=== PATIENT | female | born 1960 | race Caucasian/White ===

== ENCOUNTER 2017-07-14 14:27 | Inpatient (IN) | payer OTHER, MEDICAID ==
[2017-07-14] MEDS ORDERED: ONDANSETRON 4 MG INJ IV (16:30)
[2017-07-14] MEDS ORDERED: DOCUSATE SODIUM 100 MG CAP PO (16:30)
[2017-07-14] MEDS ORDERED: MAGNESIUM HYDROXIDE 30ML CUP PO (16:30)
[2017-07-14] MEDS ORDERED: NA PHOSPHATE/BIPHOS 133 ML ENEMA PR (16:30)
[2017-07-14] MEDS ORDERED: NACL 0.9% 3 ML SYG IV (16:30)
[2017-07-14] MEDS ORDERED: NITROGLYCERIN (SL) 0.4 MG TAB SL (16:30)
[2017-07-14] MEDS ORDERED: LORAZEPAM 2 MG INJ IV (16:30)
[2017-07-14] MEDS ORDERED: ALBUTEROL/IPRATROPIUM (NEB) 3 ML AMP HHN (16:30)
[2017-07-14] MEDS: CHLORDIAZEPOXIDE 25 MG CAP PO ×3 (16:52→20:13)
[2017-07-14] MEDS: LORAZEPAM 2 MG INJ IV ×4 (17:52→23:07)
[2017-07-14 17:53] LABS: INR 1.12; PROTIME 14.6 Sec (11.9-14.9); PT RATIO 1.1
[2017-07-14 17:54] LABS: PARTIAL THROMBOPLASTIN TIME 32.3 Sec (25.0-35.0)
[2017-07-14 18:05] LABS: FREE T4 (FREE THYROXINE) 1.28 ng/dl (0.64-1.79)
[2017-07-14] MEDS: DILTIAZEM-D5W 125MG/125ML DRIP 125 ML IVPB ×2 (18:20→18:44)
[2017-07-14] MEDS: MULTIVITAMINS 10 ML, THIAMINE 100 MG, FOLIC ACID 1 MG in SOD CHLORIDE 0.9% 1,000 ML IVPB (18:21)
[2017-07-14] MEDS: morphine 2 MG INJ IV (20:14)
[2017-07-14] MEDS: HEPARIN 5,000 UNIT/0.5 ML VIAL SC (20:17)
[2017-07-14] MEDS ORDERED: CHLORDIAZEPOXIDE 25 MG CAP PO (21:00)
[2017-07-15] MEDS: DILTIAZEM-D5W 125MG/125ML DRIP 125 ML IVPB ×2 (01:39→09:25)
[2017-07-15] MEDS: LORAZEPAM 2 MG INJ IV ×6 (04:56→13:45)
[2017-07-15] MEDS: MULTIVITAMINS 10 ML, THIAMINE 100 MG, FOLIC ACID 1 MG in SOD CHLORIDE 0.9% 1,000 ML IVPB (08:37)
[2017-07-15] MEDS: CHLORDIAZEPOXIDE 25 MG CAP PO ×3 (08:37→20:47)
[2017-07-15] MEDS: FAMOTIDINE 20 MG INJ IV (08:38)
[2017-07-15] MEDS: HEPARIN 5,000 UNIT/0.5 ML VIAL SC ×2 (09:00→20:49)
[2017-07-15 09:21] LABS: ADD MAN DIFF? NO
[2017-07-15 09:32] LABS: WHITE BLOOD COUNT 7.9 10^3/ul (4.8-10.8)
[2017-07-15 09:32] LABS: BASOPHILS % 0.4 % (0.0-2.0); EOSINOPHILS # 0.1 10^3/ul (0.0-0.5); EOSINOPHILS % 1.4 % (0.0-7.0); HEMATOCRIT 32.7 % (37.0-47.0); HEMOGLOBIN 11.3 g/dl (12.0-16.0); LYMPHOCYTES # 1.3 10^3/ul (0.8-2.9); LYMPHOCYTES % 16.4 % (15.0-51.0); MEAN CORPUSCULAR HEMOGLOBIN 35.3 pg (29.0-33.0); MEAN CORPUSCULAR HGB CONC 34.6 g/dl (32.0-37.0); MEAN CORPUSCULAR VOLUME 102.2 fl (82.0-101.0); MEAN PLATELET VOLUME 11.4 fl (7.4-10.4); MONOCYTE # 0.3 10^3/ul (0.3-0.9); MONOCYTES % 4.3 % (0.0-11.0); NEUTROPHIL # 6.1 10^3/ul (1.6-7.5); NEUTROPHILS % 77.2 % (39.0-77.0); PLATELET COUNT 193 10^3/UL (140-415)
[2017-07-15 09:47] LABS: ANION GAP 15 (8-16); BLOOD UREA NITROGEN 8 mg/dl (7-20); CALCIUM 8.6 mg/dl (8.4-10.2); CARBON DIOXIDE 24 mmol/L (21-31); CHLORIDE 99 mmol/L (97-110); CHOL/HDL RATIO 6.1 RATIO; CHOLESTEROL 141 mg/dl (100-200); CREATININE 0.58 mg/dl (0.44-1.00); GLUCOSE 101 mg/dl (70-220); HDL CHOLESTEROL 23 mg/dl (35-98); LDL CHOLESTEROL,CALCULATED 98 mg/dl; MAGNESIUM 1.7 mg/dl (1.7-2.5); PHOSPHORUS 3.3 mg/dl (2.5-4.9); POTASSIUM 3.8 mmol/L (3.5-5.1); SODIUM 134 mmol/L (135-144); TRIGLYCERIDES 102 mg/dl (0-149)
[2017-07-15 10:05] LABS: HEMOGLOBIN A1C 5.8 % (0-5.9)
[2017-07-15 12:56] LABS: FOLATE 18.5 ng/ml (2.8-20.0)
[2017-07-15] MEDS: morphine 2 MG INJ IV ×2 (13:45→18:22)
[2017-07-15] MEDS: DILTIAZEM 60 MG TAB PO (18:22)
[2017-07-16] MEDS: HYDROCODONE/APAP (5/325) TAB PO (00:11)
[2017-07-16] MEDS: DILTIAZEM 60 MG TAB PO ×3 (00:12→12:48)
[2017-07-16] MEDS: morphine 2 MG INJ IV ×2 (00:33→06:42)
[2017-07-16 08:21] LABS: ADD MAN DIFF? NO
[2017-07-16 08:31] LABS: WHITE BLOOD COUNT 8.4 10^3/ul (4.8-10.8)
[2017-07-16 08:31] LABS: BASOPHILS % 0.4 % (0.0-2.0); EOSINOPHILS # 0.1 10^3/ul (0.0-0.5); EOSINOPHILS % 1.2 % (0.0-7.0); HEMATOCRIT 32.5 % (37.0-47.0); HEMOGLOBIN 11.1 g/dl (12.0-16.0); LYMPHOCYTES # 1.4 10^3/ul (0.8-2.9); LYMPHOCYTES % 16.7 % (15.0-51.0); MEAN CORPUSCULAR HEMOGLOBIN 34.6 pg (29.0-33.0); MEAN CORPUSCULAR HGB CONC 34.2 g/dl (32.0-37.0); MEAN CORPUSCULAR VOLUME 101.2 fl (82.0-101.0); MEAN PLATELET VOLUME 11.5 fl (7.4-10.4); MONOCYTE # 0.4 10^3/ul (0.3-0.9); MONOCYTES % 4.8 % (0.0-11.0); NEUTROPHIL # 6.4 10^3/ul (1.6-7.5); NEUTROPHILS % 76.5 % (39.0-77.0); PLATELET COUNT 174 10^3/UL (140-415); RED BLOOD COUNT 3.21 10^6/ul (4.20-5.40); RED CELL DISTRIBUTION WIDTH 15.8 % (11.5-14.5)
[2017-07-16 09:03] LABS: ANION GAP 14 (8-16); BLOOD UREA NITROGEN 6 mg/dl (7-20); CALCIUM 8.6 mg/dl (8.4-10.2); CARBON DIOXIDE 27 mmol/L (21-31); CHLORIDE 100 mmol/L (97-110); GLUCOSE 85 mg/dl (70-220); POTASSIUM 3.7 mmol/L (3.5-5.1); SODIUM 137 mmol/L (135-144)
[2017-07-16] MEDS: MULTIVITAMINS 10 ML, THIAMINE 100 MG, FOLIC ACID 1 MG in SOD CHLORIDE 0.9% 1,000 ML IVPB (09:19)
[2017-07-16] MEDS: ASPIRIN 81 MG TAB PO (09:19)
[2017-07-16] MEDS: CHLORDIAZEPOXIDE 25 MG CAP PO ×3 (09:19→20:50)
[2017-07-16] MEDS: FAMOTIDINE 20 MG INJ IV (09:19)
[2017-07-16] MEDS: HEPARIN 5,000 UNIT/0.5 ML VIAL SC ×2 (09:42→20:57)
[2017-07-16] MEDS: ACETAMINOPHEN 325 MG TAB PO (12:50)
[2017-07-16] MEDS: LORAZEPAM 2 MG INJ IV ×2 (15:51→20:50)
[2017-07-16] MEDS: DILTIAZEM 90 MG TAB PO (17:46)
[2017-07-16] MEDS: POTASSIUM CHLORIDE (SR) 20 MEQ TAB PO (17:46)
[2017-07-16] MEDS: METOPROLOL 50 MG TAB PO (20:43)
[2017-07-17] MEDS: DILTIAZEM 90 MG TAB PO ×4 (00:12→18:00)
[2017-07-17] MEDS: MULTIVITAMINS 10 ML, THIAMINE 100 MG, FOLIC ACID 1 MG in SOD CHLORIDE 0.9% 1,000 ML IVPB (08:10)
[2017-07-17] MEDS: CHLORDIAZEPOXIDE 25 MG CAP PO ×3 (08:11→21:00)
[2017-07-17] MEDS: ASPIRIN 81 MG TAB PO (08:11)
[2017-07-17] MEDS: METOPROLOL 50 MG TAB PO ×3 (08:17→22:00)
[2017-07-17] MEDS: FAMOTIDINE 20 MG TAB PO (08:21)
[2017-07-17] MEDS: HEPARIN 5,000 UNIT/0.5 ML VIAL SC ×2 (08:23→21:04)
[2017-07-17 08:57] LABS: ADD MAN DIFF? NO
[2017-07-17 09:06] LABS: WHITE BLOOD COUNT 6.9 10^3/ul (4.8-10.8)
[2017-07-17 09:06] LABS: BASOPHILS % 0.6 % (0.0-2.0); EOSINOPHILS # 0.1 10^3/ul (0.0-0.5); EOSINOPHILS % 0.9 % (0.0-7.0); HEMATOCRIT 30.1 % (37.0-47.0); HEMOGLOBIN 10.3 g/dl (12.0-16.0); LYMPHOCYTES # 0.9 10^3/ul (0.8-2.9); LYMPHOCYTES % 13.4 % (15.0-51.0); MEAN CORPUSCULAR HGB CONC 34.2 g/dl (32.0-37.0); MEAN CORPUSCULAR VOLUME 102.4 fl (82.0-101.0); MEAN PLATELET VOLUME 10.6 fl (7.4-10.4); MONOCYTE # 0.4 10^3/ul (0.3-0.9); MONOCYTES % 5.2 % (0.0-11.0); NEUTROPHIL # 5.5 10^3/ul (1.6-7.5); NEUTROPHILS % 79.8 % (39.0-77.0); PLATELET COUNT 172 10^3/UL (140-415); RED BLOOD COUNT 2.94 10^6/ul (4.20-5.40); RED CELL DISTRIBUTION WIDTH 15.8 % (11.5-14.5)
[2017-07-17 09:17] LABS: MAGNESIUM 1.7 mg/dl (1.7-2.5)
[2017-07-17] MEDS: LORAZEPAM 2 MG INJ IV ×2 (09:22→11:22)
[2017-07-17 09:29] LABS: ANION GAP 13 (8-16); BLOOD UREA NITROGEN 6 mg/dl (7-20); CALCIUM 8.4 mg/dl (8.4-10.2); CARBON DIOXIDE 26 mmol/L (21-31); CHLORIDE 106 mmol/L (97-110); CREATININE 0.54 mg/dl (0.44-1.00); GLUCOSE 112 mg/dl (70-220); POTASSIUM 3.5 mmol/L (3.5-5.1); SODIUM 141 mmol/L (135-144)
[2017-07-17] MEDS: POTASSIUM CHLORIDE (SR) 20 MEQ TAB PO (10:09)
[2017-07-17] MEDS: MAGNESIUM SULFATE 2 GM/50 ML 50 ML IVPB (11:18)
[2017-07-18] MEDS: DILTIAZEM 50 MG INJ IV ×6 (00:33→21:41)
[2017-07-18] MEDS: METOPROLOL 50 MG TAB PO (06:00)
[2017-07-18] MEDS: DILTIAZEM 90 MG TAB PO ×4 (06:00→17:23)
[2017-07-18] MEDS: MULTIVITAMINS 10 ML, THIAMINE 100 MG, FOLIC ACID 1 MG in SOD CHLORIDE 0.9% 1,000 ML IVPB (08:56)
[2017-07-18] MEDS: FAMOTIDINE 20 MG TAB PO (09:00)
[2017-07-18] MEDS: CHLORDIAZEPOXIDE 25 MG CAP PO ×3 (09:00→21:11)
[2017-07-18] MEDS: ASPIRIN 81 MG TAB PO (09:00)
[2017-07-18] MEDS: HEPARIN 5,000 UNIT/0.5 ML VIAL SC ×2 (09:01→21:13)
[2017-07-18 09:07] LABS: ADD MAN DIFF? NO
[2017-07-18 09:19] LABS: BASOPHILS % 0.5 % (0.0-2.0); EOSINOPHILS # 0.1 10^3/ul (0.0-0.5); EOSINOPHILS % 1.2 % (0.0-7.0); HEMATOCRIT 30.8 % (37.0-47.0); HEMOGLOBIN 10.4 g/dl (12.0-16.0); LYMPHOCYTES # 1.4 10^3/ul (0.8-2.9); LYMPHOCYTES % 19.5 % (15.0-51.0); MEAN CORPUSCULAR HEMOGLOBIN 34.7 pg (29.0-33.0); MEAN CORPUSCULAR HGB CONC 33.8 g/dl (32.0-37.0); MEAN CORPUSCULAR VOLUME 102.7 fl (82.0-101.0); MEAN PLATELET VOLUME 10.8 fl (7.4-10.4); MONOCYTE # 0.6 10^3/ul (0.3-0.9); MONOCYTES % 7.7 % (0.0-11.0); NEUTROPHIL # 5.2 10^3/ul (1.6-7.5); NEUTROPHILS % 70.7 % (39.0-77.0); PLATELET COUNT 180 10^3/UL (140-415); RED CELL DISTRIBUTION WIDTH 16.3 % (11.5-14.5)
[2017-07-18 09:19] LABS: WHITE BLOOD COUNT 7.4 10^3/ul (4.8-10.8)
[2017-07-18 09:47] LABS: ANION GAP 11 (8-16); BLOOD UREA NITROGEN 9 mg/dl (7-20); CALCIUM 8.3 mg/dl (8.4-10.2); CARBON DIOXIDE 28 mmol/L (21-31); CHLORIDE 107 mmol/L (97-110); CREATININE 0.56 mg/dl (0.44-1.00); GLUCOSE 91 mg/dl (70-220); POTASSIUM 3.7 mmol/L (3.5-5.1); SODIUM 142 mmol/L (135-144)
[2017-07-18] MEDS: DIGOXIN 500 MCG INJ IV (10:20)
[2017-07-18] MEDS: IPRATROPIUM (NEB) 0.5 MG/2.5 ML AMP HHN ×2 (11:00→15:29)
[2017-07-18] MEDS: LEVALBUTEROL (NEB) 1.25 MG/0.5 ML AMP HHN ×2 (11:00→15:29)
[2017-07-18] MEDS ORDERED: DILTIAZEM 25 MG INJ IV (12:00)
[2017-07-18 12:56] LABS: IRON 41 ug/dl (35-150)
[2017-07-18 13:06] LABS: % IRON SATURATION 16 % SAT (22-52); TOTAL IRON BINDING CAPACITY 255 ug/dl (241-421)
[2017-07-18 13:30] LABS: HEPATITIS B SURFACE ANTIGEN NEGATIVE (NEGATIVE)
[2017-07-18 13:47] LABS: HEPATITIS C VIRAL ANTIBODY NEGATIVE (NEGATIVE)
[2017-07-18 14:51] LABS: RAPID PLASMA REAGIN NONREACTIVE (NR)
[2017-07-18] MEDS: METOPROLOL 100 MG TAB PO (21:11)
[2017-07-19] MEDS: IPRATROPIUM (NEB) 0.5 MG/2.5 ML AMP HHN ×3 (00:54→15:24)
[2017-07-19] MEDS: LEVALBUTEROL (NEB) 1.25 MG/0.5 ML AMP HHN ×2 (00:54→08:26)
[2017-07-19] MEDS: DILTIAZEM 90 MG TAB PO ×4 (06:50→17:19)
[2017-07-19 07:14] LABS: ADD MAN DIFF? NO
[2017-07-19 07:18] LABS: BASOPHIL # 0.1 10^3/ul (0.0-0.1); BASOPHILS % 0.7 % (0.0-2.0); EOSINOPHILS # 0.2 10^3/ul (0.0-0.5); HEMATOCRIT 34.4 % (37.0-47.0); HEMOGLOBIN 11.7 g/dl (12.0-16.0); LYMPHOCYTES # 1.4 10^3/ul (0.8-2.9); LYMPHOCYTES % 17.9 % (15.0-51.0); MEAN CORPUSCULAR HEMOGLOBIN 35.2 pg (29.0-33.0); MEAN CORPUSCULAR VOLUME 103.6 fl (82.0-101.0); MONOCYTE # 0.6 10^3/ul (0.3-0.9); MONOCYTES % 8.2 % (0.0-11.0); NEUTROPHIL # 5.4 10^3/ul (1.6-7.5); NEUTROPHILS % 70.9 % (39.0-77.0); PLATELET COUNT 219 10^3/UL (140-415); RED BLOOD COUNT 3.32 10^6/ul (4.20-5.40); RED CELL DISTRIBUTION WIDTH 16.5 % (11.5-14.5)
[2017-07-19 07:18] LABS: WHITE BLOOD COUNT 7.5 10^3/ul (4.8-10.8)
[2017-07-19 07:51] LABS: ANION GAP 13 (8-16); BLOOD UREA NITROGEN 9 mg/dl (7-20); CALCIUM 8.6 mg/dl (8.4-10.2); CARBON DIOXIDE 26 mmol/L (21-31); CHLORIDE 110 mmol/L (97-110); CREATININE 0.53 mg/dl (0.44-1.00); GLUCOSE 91 mg/dl (70-220); POTASSIUM 4.5 mmol/L (3.5-5.1); SODIUM 144 mmol/L (135-144)
[2017-07-19] MEDS: HEPARIN 5,000 UNIT/0.5 ML VIAL SC ×2 (08:49→21:38)
[2017-07-19] MEDS: ASPIRIN 81 MG TAB PO (09:00)
[2017-07-19] MEDS: CHLORDIAZEPOXIDE 25 MG CAP PO ×3 (09:00→21:24)
[2017-07-19] MEDS: METOPROLOL 100 MG TAB PO ×2 (09:00→21:24)
[2017-07-19] MEDS: FAMOTIDINE 20 MG TAB PO (09:00)
[2017-07-19] MEDS: MULTIVITAMINS 10 ML, THIAMINE 100 MG, FOLIC ACID 1 MG in SOD CHLORIDE 0.9% 1,000 ML IVPB (09:02)
[2017-07-20] MEDS: IPRATROPIUM (NEB) 0.5 MG/2.5 ML AMP HHN ×4 (00:11→23:09)
[2017-07-20] MEDS: DILTIAZEM 90 MG TAB PO ×4 (01:00→17:26)
[2017-07-20 07:47] LABS: ADD MAN DIFF? NO
[2017-07-20 07:56] LABS: WHITE BLOOD COUNT 7.3 10^3/ul (4.8-10.8)
[2017-07-20 07:56] LABS: BASOPHIL # 0.1 10^3/ul (0.0-0.1); BASOPHILS % 0.7 % (0.0-2.0); EOSINOPHILS # 0.2 10^3/ul (0.0-0.5); EOSINOPHILS % 2.1 % (0.0-7.0); HEMATOCRIT 33.2 % (37.0-47.0); HEMOGLOBIN 11.3 g/dl (12.0-16.0); LYMPHOCYTES # 1.2 10^3/ul (0.8-2.9); LYMPHOCYTES % 16.6 % (15.0-51.0); MEAN CORPUSCULAR HEMOGLOBIN 34.9 pg (29.0-33.0); MEAN CORPUSCULAR VOLUME 102.5 fl (82.0-101.0); MEAN PLATELET VOLUME 12.2 fl (7.4-10.4); MONOCYTE # 0.6 10^3/ul (0.3-0.9); MONOCYTES % 8.5 % (0.0-11.0); NEUTROPHIL # 5.2 10^3/ul (1.6-7.5); NEUTROPHILS % 71.6 % (39.0-77.0); PLATELET COUNT 185 10^3/UL (140-415); RED BLOOD COUNT 3.24 10^6/ul (4.20-5.40); RED CELL DISTRIBUTION WIDTH 16.5 % (11.5-14.5)
[2017-07-20] MEDS: ASPIRIN 81 MG TAB PO (08:21)
[2017-07-20] MEDS: FAMOTIDINE 20 MG TAB PO (08:21)
[2017-07-20] MEDS: METOPROLOL 100 MG TAB PO ×2 (08:21→20:44)
[2017-07-20] MEDS: CHLORDIAZEPOXIDE 25 MG CAP PO (08:21)
[2017-07-20] MEDS: HEPARIN 5,000 UNIT/0.5 ML VIAL SC ×2 (08:23→20:57)
[2017-07-20 08:29] LABS: ANION GAP 11 (8-16); BLOOD UREA NITROGEN 11 mg/dl (7-20); CALCIUM 8.6 mg/dl (8.4-10.2); CARBON DIOXIDE 29 mmol/L (21-31); CHLORIDE 109 mmol/L (97-110); CREATININE 0.49 mg/dl (0.44-1.00); GLUCOSE 116 mg/dl (70-220); POTASSIUM 4.6 mmol/L (3.5-5.1); SODIUM 144 mmol/L (135-144)
[2017-07-20] MEDS: MULTIVITAMINS 10 ML, THIAMINE 100 MG, FOLIC ACID 1 MG in SOD CHLORIDE 0.9% 1,000 ML IVPB (08:50)
[2017-07-20 12:49] LABS: AMMONIA 30 umol/l (9-30)
[2017-07-20 13:52] LABS: AADO2 Arterial 33.5 mmHg (7.0-24.0); Allen Test ACCEPTAB; Arterial Base Excess 1.9 mmol/L (-3.0-3); Arterial Blood Gas Oxygen Sat 92.6 mmHG (95.0-98.0); Arterial COHb 0.1 % (0.0-3.0); Arterial Fraction of Oxyhgb 92.3 % (93.0-99.0); Arterial HCO3 26.4 mmol/L (22.0-26.0); Arterial MetHb 0.2 % (0.0-1.5); Arterial Total Hemglobin 11.8 g/dl (12.0-18.0); Arterial pCO2 40.9 mmhg (35-45); MODE ROOM AIR; Site Right Radial
[2017-07-21] MEDS: DILTIAZEM 90 MG TAB PO ×3 (01:34→12:20)
[2017-07-21 07:47] LABS: ADD MAN DIFF? NO
[2017-07-21 07:53] LABS: BASOPHILS % 0.5 % (0.0-2.0); EOSINOPHILS # 0.1 10^3/ul (0.0-0.5); EOSINOPHILS % 2.2 % (0.0-7.0); HEMOGLOBIN 11.4 g/dl (12.0-16.0); LYMPHOCYTES % 15.9 % (15.0-51.0); MEAN CORPUSCULAR HEMOGLOBIN 35.1 pg (29.0-33.0); MEAN CORPUSCULAR HGB CONC 33.5 g/dl (32.0-37.0); MEAN CORPUSCULAR VOLUME 104.6 fl (82.0-101.0); MEAN PLATELET VOLUME 11.9 fl (7.4-10.4); MONOCYTE # 0.5 10^3/ul (0.3-0.9); MONOCYTES % 8.4 % (0.0-11.0); NEUTROPHIL # 4.6 10^3/ul (1.6-7.5); NEUTROPHILS % 72.5 % (39.0-77.0); PLATELET COUNT 186 10^3/UL (140-415); RED BLOOD COUNT 3.25 10^6/ul (4.20-5.40); RED CELL DISTRIBUTION WIDTH 16.5 % (11.5-14.5)
[2017-07-21 07:53] LABS: WHITE BLOOD COUNT 6.3 10^3/ul (4.8-10.8)
[2017-07-21] MEDS: IPRATROPIUM (NEB) 0.5 MG/2.5 ML AMP HHN ×2 (08:19→16:39)
[2017-07-21 08:29] LABS: MAGNESIUM 1.9 mg/dl (1.7-2.5)
[2017-07-21 08:37] LABS: ANION GAP 10 (8-16); BLOOD UREA NITROGEN 11 mg/dl (7-20); CALCIUM 8.6 mg/dl (8.4-10.2); CARBON DIOXIDE 27 mmol/L (21-31); CHLORIDE 109 mmol/L (97-110); GLUCOSE 134 mg/dl (70-220); POTASSIUM 4.1 mmol/L (3.5-5.1); SODIUM 142 mmol/L (135-144)
[2017-07-21] MEDS: MULTIVITAMINS 10 ML, THIAMINE 100 MG, FOLIC ACID 1 MG in SOD CHLORIDE 0.9% 1,000 ML IVPB (08:51)
[2017-07-21] MEDS: HEPARIN 5,000 UNIT/0.5 ML VIAL SC ×2 (08:51→21:48)
[2017-07-21] MEDS: ASPIRIN 81 MG TAB PO (08:52)
[2017-07-21] MEDS: METOPROLOL 100 MG TAB PO ×2 (08:52→21:20)
[2017-07-21] MEDS: FAMOTIDINE 20 MG TAB PO (08:52)
[2017-07-21] MEDS: ALBUTEROL/IPRATROPIUM (NEB) 3 ML AMP HHN (10:58)
[2017-07-21] MEDS ORDERED: DILTIAZEM 60 MG TAB PO (15:30)
[2017-07-22] MEDS: IPRATROPIUM (NEB) 0.5 MG/2.5 ML AMP HHN ×3 (00:09→17:41)
[2017-07-22 08:20] LABS: ADD MAN DIFF? NO
[2017-07-22 08:43] LABS: ANION GAP 13 (8-16); BLOOD UREA NITROGEN 12 mg/dl (7-20); CALCIUM 8.4 mg/dl (8.4-10.2); CARBON DIOXIDE 29 mmol/L (21-31); CHLORIDE 103 mmol/L (97-110); CREATININE 0.52 mg/dl (0.44-1.00); GLUCOSE 120 mg/dl (70-220); POTASSIUM 4.2 mmol/L (3.5-5.1); SODIUM 141 mmol/L (135-144)
[2017-07-22] MEDS: ASPIRIN 81 MG TAB PO (09:09)
[2017-07-22] MEDS: METOPROLOL 100 MG TAB PO ×2 (09:09→20:59)
[2017-07-22] MEDS: FAMOTIDINE 20 MG TAB PO (09:09)
[2017-07-22] MEDS: HEPARIN 5,000 UNIT/0.5 ML VIAL SC ×2 (09:11→21:07)
[2017-07-22] MEDS: MULTIVITAMINS 10 ML, THIAMINE 100 MG, FOLIC ACID 1 MG in SOD CHLORIDE 0.9% 1,000 ML IVPB (09:18)
[2017-07-22 10:52] LABS: BASOPHILS % 0.5 % (0.0-2.0); EOSINOPHILS # 0.1 10^3/ul (0.0-0.5); EOSINOPHILS % 1.7 % (0.0-7.0); HEMATOCRIT 34.1 % (37.0-47.0); HEMOGLOBIN 11.3 g/dl (12.0-16.0); LYMPHOCYTES # 0.9 10^3/ul (0.8-2.9); LYMPHOCYTES % 14.1 % (15.0-51.0); MEAN CORPUSCULAR HEMOGLOBIN 34.6 pg (29.0-33.0); MEAN CORPUSCULAR HGB CONC 33.1 g/dl (32.0-37.0); MEAN CORPUSCULAR VOLUME 104.3 fl (82.0-101.0); MEAN PLATELET VOLUME 11.7 fl (7.4-10.4); MONOCYTE # 0.4 10^3/ul (0.3-0.9); MONOCYTES % 6.2 % (0.0-11.0); NEUTROPHILS % 77.2 % (39.0-77.0); PLATELET COUNT 210 10^3/UL (140-415); RED BLOOD COUNT 3.27 10^6/ul (4.20-5.40); RED CELL DISTRIBUTION WIDTH 16.2 % (11.5-14.5)
[2017-07-22 10:52] LABS: WHITE BLOOD COUNT 6.5 10^3/ul (4.8-10.8)
[2017-07-23] MEDS: IPRATROPIUM (NEB) 0.5 MG/2.5 ML AMP HHN ×3 (00:35→16:00)
[2017-07-23 07:29] LABS: AMMONIA 27 umol/l (9-30)
[2017-07-23 07:33] LABS: ALANINE AMINOTRANSFERASE 56 IU/L (13-69); ALBUMIN 2.5 g/dl (3.3-4.9); ALKALINE PHOSPHATASE 114 IU/L (42-121); ANION GAP 7 (8-16); ASPARTATE AMINO TRANSFERASE 139 IU/L (15-46); BILIRUBIN,INDIRECT 0.1 mg/dl (0-1.1); BILIRUBIN,TOTAL 0.1 mg/dl (0.2-1.3); BLOOD UREA NITROGEN 11 mg/dl (7-20); CALCIUM 8.5 mg/dl (8.4-10.2); CARBON DIOXIDE 33 mmol/L (21-31); CHLORIDE 103 mmol/L (97-110); GLUCOSE 141 mg/dl (70-220); POTASSIUM 4.3 mmol/L (3.5-5.1); SODIUM 139 mmol/L (135-144); TOTAL PROTEIN 5.6 g/dl (6.1-8.1)
[2017-07-23] MEDS: FAMOTIDINE 20 MG TAB PO (09:00)
[2017-07-23] MEDS: MULTIVITAMINS 10 ML, THIAMINE 100 MG, FOLIC ACID 1 MG in SOD CHLORIDE 0.9% 1,000 ML IVPB (09:00)
[2017-07-23] MEDS: METOPROLOL 100 MG TAB PO ×3 (09:01→23:58)
[2017-07-23] MEDS: ASPIRIN 81 MG TAB PO (09:01)
[2017-07-23] MEDS: HEPARIN 5,000 UNIT/0.5 ML VIAL SC ×2 (09:12→21:58)
[2017-07-23] MEDS: ALBUTEROL/IPRATROPIUM (NEB) 3 ML AMP HHN ×4 (10:37→20:07)
[2017-07-23] MEDS: FUROSEMIDE 40 MG INJ IV ×2 (11:00→14:25)
[2017-07-23] MEDS: METHYLPREDNISOLONE 125 MG INJ IM (13:02)
[2017-07-23] MEDS: DILTIAZEM 25 MG INJ IV (16:42)
[2017-07-24] MEDS: ALBUTEROL/IPRATROPIUM (NEB) 3 ML AMP HHN ×6 (01:38→20:26)
[2017-07-24] MEDS: IPRATROPIUM (NEB) 0.5 MG/2.5 ML AMP HHN ×3 (08:00→13:24)
[2017-07-24] MEDS: FUROSEMIDE 40 MG INJ IV (08:56)
[2017-07-24] MEDS: FAMOTIDINE 20 MG TAB PO (08:56)
[2017-07-24] MEDS: ASPIRIN 81 MG TAB PO (08:57)
[2017-07-24] MEDS: METOPROLOL 100 MG TAB PO ×2 (08:57→20:32)
[2017-07-24] MEDS: MULTIVITAMINS 10 ML, THIAMINE 100 MG, FOLIC ACID 1 MG in SOD CHLORIDE 0.9% 1,000 ML IVPB (08:58)
[2017-07-24] MEDS: HEPARIN 5,000 UNIT/0.5 ML VIAL SC ×2 (09:00→20:33)
[2017-07-24 09:06] LABS: ANION GAP 8 (8-16); BLOOD UREA NITROGEN 12 mg/dl (7-20); CALCIUM 8.9 mg/dl (8.4-10.2); CARBON DIOXIDE 38 mmol/L (21-31); CHLORIDE 102 mmol/L (97-110); CREATININE 0.51 mg/dl (0.44-1.00); GLUCOSE 129 mg/dl (70-220); POTASSIUM 4.2 mmol/L (3.5-5.1); SODIUM 144 mmol/L (135-144)
[2017-07-24 15:14] LABS: FLD RBC 0 /uL; FLD WBC 64 /cmm
[2017-07-24 15:26] LABS: FLUID LD 212 U/L
[2017-07-24 15:27] LABS: FLUID GLUCOSE 130 mg/dl; FLUID TOTAL PROTEIN < 2.0 g/dl; FLUID TYPE FLUID
[2017-07-24 15:38] LABS: FLD TYPE PLEURAL
[2017-07-24 15:38] LABS: FLD CLARITY CLEAR
[2017-07-24 15:40] LABS: PATH REVIEW? YES
[2017-07-24 15:43] LABS: FLD COLOR YELLOW
[2017-07-24] MEDS ORDERED: LIDOCAINE 1% (MDV) 10 ML INJ (16:53)
[2017-07-24 17:47] LABS: CSF RBC 0 /uL (0-0); CSF WBC 1 /cmm (0-10)
[2017-07-24 17:49] LABS: CSF RBC 0 /uL (0-0); CSF WBC 0 /cmm (0-10)
[2017-07-24 17:50] LABS: CSF COLOR COLORLESS
[2017-07-24 17:50] LABS: CSF CLARITY CLEAR; CSF COLOR COLORLESS; CSF#TUBE COUNT TUBE#1; CSF#TUBE COUNT TUBE#4; CSF#TUBES REC'D 4
[2017-07-24 18:03] LABS: TOTAL PROTEIN,CSF 46 mg/dl (12-60)
[2017-07-24 18:03] LABS: GLUCOSE,CSF 65 mg/dl (50-80)
[2017-07-25] MEDS: METOPROLOL 100 MG TAB PO ×2 (00:42→08:23)
[2017-07-25] MEDS: ALBUTEROL/IPRATROPIUM (NEB) 3 ML AMP HHN ×6 (01:35→20:46)
[2017-07-25 07:21] LABS: ADD MAN DIFF? NO
[2017-07-25 07:26] LABS: BASOPHILS % 0.5 % (0.0-2.0); EOSINOPHILS # 0.1 10^3/ul (0.0-0.5); EOSINOPHILS % 2.2 % (0.0-7.0); HEMATOCRIT 32.8 % (37.0-47.0); LYMPHOCYTES # 1.2 10^3/ul (0.8-2.9); LYMPHOCYTES % 18.4 % (15.0-51.0); MEAN CORPUSCULAR HEMOGLOBIN 34.8 pg (29.0-33.0); MEAN CORPUSCULAR HGB CONC 33.5 g/dl (32.0-37.0); MEAN CORPUSCULAR VOLUME 103.8 fl (82.0-101.0); MONOCYTE # 0.4 10^3/ul (0.3-0.9); NEUTROPHIL # 4.6 10^3/ul (1.6-7.5); NEUTROPHILS % 72.6 % (39.0-77.0); PLATELET COUNT 216 10^3/UL (140-415); RED BLOOD COUNT 3.16 10^6/ul (4.20-5.40)
[2017-07-25 07:26] LABS: WHITE BLOOD COUNT 6.4 10^3/ul (4.8-10.8)
[2017-07-25 07:56] LABS: ANION GAP 9 (8-16); BLOOD UREA NITROGEN 15 mg/dl (7-20); CALCIUM 8.7 mg/dl (8.4-10.2); CARBON DIOXIDE 36 mmol/L (21-31); CHLORIDE 99 mmol/L (97-110); CREATININE 0.57 mg/dl (0.44-1.00); GLUCOSE 126 mg/dl (70-220); POTASSIUM 4.3 mmol/L (3.5-5.1); SODIUM 140 mmol/L (135-144)
[2017-07-25] MEDS: ASPIRIN 81 MG TAB PO (08:22)
[2017-07-25] MEDS: FOLIC ACID 1 MG TAB PO (08:22)
[2017-07-25] MEDS: THIAMINE 100 MG TAB GTB (08:22)
[2017-07-25] MEDS: FAMOTIDINE 20 MG TAB PO (08:23)
[2017-07-25] MEDS: FUROSEMIDE 40 MG INJ IV (08:24)
[2017-07-25] MEDS: HEPARIN 5,000 UNIT/0.5 ML VIAL SC ×2 (08:25→23:02)
[2017-07-25] MEDS: IPRATROPIUM (NEB) 0.5 MG/2.5 ML AMP HHN ×3 (09:00→16:42)
[2017-07-26] MEDS: IPRATROPIUM (NEB) 0.5 MG/2.5 ML AMP HHN
[2017-07-26] MEDS: ALBUTEROL/IPRATROPIUM (NEB) 3 ML AMP HHN ×6 (00:13→20:22)
[2017-07-26] MEDS: FOLIC ACID 1 MG TAB PO (08:41)
[2017-07-26] MEDS: METOPROLOL 100 MG TAB PO ×2 (08:42→20:12)
[2017-07-26] MEDS: ASPIRIN 81 MG TAB PO (08:42)
[2017-07-26] MEDS: FAMOTIDINE 20 MG TAB PO (08:42)
[2017-07-26] MEDS: FUROSEMIDE 40 MG INJ IV (08:43)
[2017-07-26] MEDS: THIAMINE 100 MG TAB GTB (08:46)
[2017-07-26] MEDS: HEPARIN 5,000 UNIT/0.5 ML VIAL SC ×2 (08:46→20:23)
[2017-07-26] MEDS: CITALOPRAM 20 MG TAB NGT (14:54)
[2017-07-26] MEDS: DILTIAZEM 60 MG TAB NGT ×2 (14:55→22:56)
[2017-07-27] MEDS: ALBUTEROL/IPRATROPIUM (NEB) 3 ML AMP HHN ×6 (00:46→20:05)
[2017-07-27 05:33] LABS: AADO2 Arterial 39.7 mmHg (7.0-24.0); Allen Test ACCEPTAB; Arterial Blood Gas Oxygen Sat 97.4 mmHG (95.0-98.0); Arterial COHb 0.9 % (0.0-3.0); Arterial Fraction of Oxyhgb 96.2 % (93.0-99.0); Arterial HCO3 32.7 mmol/L (22.0-26.0); Arterial MetHb 0.3 % (0.0-1.5); Arterial Total Hemglobin 12.3 g/dl (12.0-18.0); Arterial pCO2 45.7 mmhg (35-45); MODE NASAL CANNULA; Site Left Radial
[2017-07-27] MEDS: DILTIAZEM 60 MG TAB NGT ×3 (05:38→21:51)
[2017-07-27] MEDS: ASPIRIN 81 MG TAB PO (08:44)
[2017-07-27] MEDS: FOLIC ACID 1 MG TAB PO (08:44)
[2017-07-27] MEDS: METOPROLOL 100 MG TAB PO ×2 (08:44→21:51)
[2017-07-27] MEDS: THIAMINE 100 MG TAB GTB (08:44)
[2017-07-27] MEDS: FAMOTIDINE 20 MG TAB PO (08:44)
[2017-07-27] MEDS: CITALOPRAM 20 MG TAB NGT (08:44)
[2017-07-27] MEDS: FUROSEMIDE 40 MG INJ IV (08:45)
[2017-07-27] MEDS: HEPARIN 5,000 UNIT/0.5 ML VIAL SC ×2 (08:48→21:54)
[2017-07-27 09:11] LABS: ADD MAN DIFF? NO
[2017-07-27 09:16] LABS: BASOPHIL # 0.1 10^3/ul (0.0-0.1); BASOPHILS % 0.7 % (0.0-2.0); EOSINOPHILS # 0.1 10^3/ul (0.0-0.5); EOSINOPHILS % 1.6 % (0.0-7.0); LYMPHOCYTES # 1.3 10^3/ul (0.8-2.9); LYMPHOCYTES % 18.1 % (15.0-51.0); MEAN CORPUSCULAR HGB CONC 33.3 g/dl (32.0-37.0); MEAN CORPUSCULAR VOLUME 101.9 fl (82.0-101.0); MEAN PLATELET VOLUME 12.3 fl (7.4-10.4); MONOCYTE # 0.4 10^3/ul (0.3-0.9); MONOCYTES % 4.8 % (0.0-11.0); NEUTROPHIL # 5.4 10^3/ul (1.6-7.5); NEUTROPHILS % 74.4 % (39.0-77.0); PLATELET COUNT 242 10^3/UL (140-415); RED BLOOD COUNT 3.24 10^6/ul (4.20-5.40); RED CELL DISTRIBUTION WIDTH 15.6 % (11.5-14.5)
[2017-07-27 09:16] LABS: WHITE BLOOD COUNT 7.3 10^3/ul (4.8-10.8)
[2017-07-27 09:36] LABS: ANION GAP 8 (8-16); BLOOD UREA NITROGEN 15 mg/dl (7-20); CALCIUM 8.9 mg/dl (8.4-10.2); CARBON DIOXIDE 36 mmol/L (21-31); CHLORIDE 100 mmol/L (97-110); CREATININE 0.58 mg/dl (0.44-1.00); GLUCOSE 124 mg/dl (70-220); POTASSIUM 3.9 mmol/L (3.5-5.1); SODIUM 140 mmol/L (135-144)
[2017-07-27 09:37] LABS: MAGNESIUM 2.1 mg/dl (1.7-2.5)
[2017-07-28] MEDS: ALBUTEROL/IPRATROPIUM (NEB) 3 ML AMP HHN ×6 (01:30→20:05)
[2017-07-28] MEDS: DILTIAZEM 60 MG TAB NGT ×3 (06:13→20:32)
[2017-07-28] MEDS: FAMOTIDINE 20 MG TAB PO (08:35)
[2017-07-28] MEDS: THIAMINE 100 MG TAB GTB (08:35)
[2017-07-28] MEDS: CITALOPRAM 20 MG TAB NGT (08:35)
[2017-07-28] MEDS: METOPROLOL 100 MG TAB PO ×2 (08:36→20:31)
[2017-07-28] MEDS: FOLIC ACID 1 MG TAB PO (08:37)
[2017-07-28] MEDS: FUROSEMIDE 40 MG INJ IV (08:37)
[2017-07-28] MEDS: ASPIRIN 81 MG TAB PO (08:37)
[2017-07-28] MEDS: HEPARIN 5,000 UNIT/0.5 ML VIAL SC ×2 (08:39→20:35)
[2017-07-28] MEDS ORDERED: MODAFINIL 200 MG TAB PO (11:30)
[2017-07-28] MEDS: DILTIAZEM 50 MG INJ IV ×2 (17:48→19:05)
[2017-07-28 19:47] LABS: VDRL, CSF NON-REACTIVE
[2017-07-29] MEDS: ALBUTEROL/IPRATROPIUM (NEB) 3 ML AMP HHN ×6 (01:27→21:08)
[2017-07-29] MEDS: DILTIAZEM 60 MG TAB NGT ×3 (05:14→20:24)
[2017-07-29 08:13] LABS: ADD MAN DIFF? NO
[2017-07-29 08:20] LABS: WHITE BLOOD COUNT 7.9 10^3/ul (4.8-10.8)
[2017-07-29 08:20] LABS: BASOPHIL # 0.1 10^3/ul (0.0-0.1); BASOPHILS % 0.8 % (0.0-2.0); EOSINOPHILS # 0.1 10^3/ul (0.0-0.5); EOSINOPHILS % 1.1 % (0.0-7.0); HEMATOCRIT 34.3 % (37.0-47.0); HEMOGLOBIN 11.5 g/dl (12.0-16.0); LYMPHOCYTES # 1.4 10^3/ul (0.8-2.9); LYMPHOCYTES % 17.3 % (15.0-51.0); MEAN CORPUSCULAR HGB CONC 33.5 g/dl (32.0-37.0); MEAN CORPUSCULAR VOLUME 101.5 fl (82.0-101.0); MEAN PLATELET VOLUME 12.2 fl (7.4-10.4); MONOCYTE # 0.5 10^3/ul (0.3-0.9); MONOCYTES % 6.7 % (0.0-11.0); NEUTROPHIL # 5.8 10^3/ul (1.6-7.5); NEUTROPHILS % 73.7 % (39.0-77.0); PLATELET COUNT 271 10^3/UL (140-415); RED BLOOD COUNT 3.38 10^6/ul (4.20-5.40); RED CELL DISTRIBUTION WIDTH 15.7 % (11.5-14.5)
[2017-07-29 08:38] LABS: ANION GAP 12 (8-16); BLOOD UREA NITROGEN 17 mg/dl (7-20); CALCIUM 8.9 mg/dl (8.4-10.2); CARBON DIOXIDE 31 mmol/L (21-31); CHLORIDE 100 mmol/L (97-110); GLUCOSE 138 mg/dl (70-220); MAGNESIUM 2.1 mg/dl (1.7-2.5); POTASSIUM 4.1 mmol/L (3.5-5.1); SODIUM 139 mmol/L (135-144)
[2017-07-29] MEDS: METOPROLOL 100 MG TAB PO ×2 (09:13→20:24)
[2017-07-29] MEDS: CITALOPRAM 20 MG TAB NGT (09:13)
[2017-07-29] MEDS: FOLIC ACID 1 MG TAB PO (09:13)
[2017-07-29] MEDS: ASPIRIN 81 MG TAB PO (09:14)
[2017-07-29] MEDS: FAMOTIDINE 20 MG TAB PO (09:14)
[2017-07-29] MEDS: THIAMINE 100 MG TAB GTB (09:14)
[2017-07-29] MEDS: FUROSEMIDE 40 MG INJ IV (09:15)
[2017-07-29] MEDS: HEPARIN 5,000 UNIT/0.5 ML VIAL SC ×2 (09:17→20:26)
[2017-07-30] MEDS: ALBUTEROL/IPRATROPIUM (NEB) 3 ML AMP HHN ×6 (01:31→20:15)
[2017-07-30] MEDS: DILTIAZEM 60 MG TAB NGT ×3 (05:25→21:01)
[2017-07-30] MEDS: METOPROLOL 100 MG TAB PO ×2 (08:50→21:00)
[2017-07-30] MEDS: FAMOTIDINE 20 MG TAB PO (08:50)
[2017-07-30] MEDS: THIAMINE 100 MG TAB GTB (08:50)
[2017-07-30] MEDS: CITALOPRAM 20 MG TAB NGT (08:50)
[2017-07-30] MEDS: ASPIRIN 81 MG TAB PO (08:50)
[2017-07-30] MEDS: FOLIC ACID 1 MG TAB PO (08:50)
[2017-07-30] MEDS: FUROSEMIDE 40 MG INJ IV (08:51)
[2017-07-30] MEDS: HEPARIN 5,000 UNIT/0.5 ML VIAL SC ×2 (09:06→20:59)
[2017-07-31] MEDS: ALBUTEROL/IPRATROPIUM (NEB) 3 ML AMP HHN ×6 (00:44→20:23)
[2017-07-31] MEDS: DILTIAZEM 60 MG TAB NGT ×3 (05:17→21:25)
[2017-07-31 07:54] LABS: ADD MAN DIFF? NO
[2017-07-31 07:57] LABS: WHITE BLOOD COUNT 9.7 10^3/ul (4.8-10.8)
[2017-07-31 07:57] LABS: BASOPHIL # 0.1 10^3/ul (0.0-0.1); BASOPHILS % 0.7 % (0.0-2.0); EOSINOPHILS # 0.1 10^3/ul (0.0-0.5); EOSINOPHILS % 1.2 % (0.0-7.0); LYMPHOCYTES # 1.7 10^3/ul (0.8-2.9); LYMPHOCYTES % 17.2 % (15.0-51.0); MEAN CORPUSCULAR HGB CONC 33.3 g/dl (32.0-37.0); MEAN PLATELET VOLUME 12.3 fl (7.4-10.4); MONOCYTE # 0.5 10^3/ul (0.3-0.9); MONOCYTES % 5.2 % (0.0-11.0); NEUTROPHIL # 7.3 10^3/ul (1.6-7.5); NEUTROPHILS % 75.4 % (39.0-77.0); PLATELET COUNT 277 10^3/UL (140-415); RED BLOOD COUNT 3.53 10^6/ul (4.20-5.40)
[2017-07-31 08:34] LABS: ANION GAP 11 (8-16); BLOOD UREA NITROGEN 18 mg/dl (7-20); CARBON DIOXIDE 34 mmol/L (21-31); CHLORIDE 98 mmol/L (97-110); CREATININE 0.54 mg/dl (0.44-1.00); GLUCOSE 94 mg/dl (70-220); SODIUM 139 mmol/L (135-144)
[2017-07-31 08:45] LABS: PHOSPHORUS 4.4 mg/dl (2.5-4.9)
[2017-07-31] MEDS: HEPARIN 5,000 UNIT/0.5 ML VIAL SC ×2 (08:55→21:51)
[2017-07-31] MEDS: THIAMINE 100 MG TAB GTB (08:56)
[2017-07-31] MEDS: METOPROLOL 100 MG TAB PO ×2 (08:56→21:26)
[2017-07-31] MEDS: CITALOPRAM 20 MG TAB NGT (08:57)
[2017-07-31] MEDS: ASPIRIN 81 MG TAB PO (08:57)
[2017-07-31] MEDS: FAMOTIDINE 20 MG TAB PO (08:57)
[2017-07-31] MEDS: FOLIC ACID 1 MG TAB PO (08:57)
[2017-07-31] MEDS: FUROSEMIDE 40 MG TAB NGT (09:02)
[2017-07-31] MEDS: QUETIAPINE 25 MG TAB PO (21:25)
[2017-08-01] MEDS: ALBUTEROL/IPRATROPIUM (NEB) 3 ML AMP HHN ×6 (01:06→20:36)
[2017-08-01] MEDS: DILTIAZEM 60 MG TAB NGT ×3 (06:56→21:49)
[2017-08-01] MEDS: METOPROLOL 100 MG TAB PO ×2 (09:26→21:55)
[2017-08-01] MEDS: FOLIC ACID 1 MG TAB PO (09:26)
[2017-08-01] MEDS: FAMOTIDINE 20 MG TAB PO (09:26)
[2017-08-01] MEDS: ASPIRIN 81 MG TAB PO (09:26)
[2017-08-01] MEDS: CITALOPRAM 20 MG TAB NGT (09:27)
[2017-08-01] MEDS: THIAMINE 100 MG TAB GTB (09:27)
[2017-08-01] MEDS: FUROSEMIDE 40 MG TAB NGT (09:27)
[2017-08-01] MEDS: HEPARIN 5,000 UNIT/0.5 ML VIAL SC ×2 (09:28→22:04)
[2017-08-01] MEDS: QUETIAPINE 25 MG TAB PO (21:49)
[2017-08-02] MEDS: ALBUTEROL/IPRATROPIUM (NEB) 3 ML AMP HHN ×6 (01:26→20:49)
[2017-08-02 06:19] LABS: ADD MAN DIFF? NO
[2017-08-02] MEDS: DILTIAZEM 60 MG TAB NGT ×3 (06:24→21:21)
[2017-08-02 06:34] LABS: BASOPHILS % 0.5 % (0.0-2.0); EOSINOPHILS # 0.2 10^3/ul (0.0-0.5); HEMATOCRIT 36.4 % (37.0-47.0); HEMOGLOBIN 12.2 g/dl (12.0-16.0); LYMPHOCYTES # 1.7 10^3/ul (0.8-2.9); LYMPHOCYTES % 22.7 % (15.0-51.0); MEAN CORPUSCULAR HEMOGLOBIN 33.9 pg (29.0-33.0); MEAN CORPUSCULAR HGB CONC 33.5 g/dl (32.0-37.0); MEAN CORPUSCULAR VOLUME 101.1 fl (82.0-101.0); MEAN PLATELET VOLUME 12.7 fl (7.4-10.4); MONOCYTE # 0.4 10^3/ul (0.3-0.9); MONOCYTES % 5.5 % (0.0-11.0); NEUTROPHIL # 5.2 10^3/ul (1.6-7.5); NEUTROPHILS % 68.9 % (39.0-77.0); PLATELET COUNT 226 10^3/UL (140-415); RED CELL DISTRIBUTION WIDTH 14.6 % (11.5-14.5)
[2017-08-02 06:34] LABS: WHITE BLOOD COUNT 7.6 10^3/ul (4.8-10.8)
[2017-08-02 07:13] LABS: ANION GAP 9 (8-16); BLOOD UREA NITROGEN 17 mg/dl (7-20); CALCIUM 9.1 mg/dl (8.4-10.2); CARBON DIOXIDE 35 mmol/L (21-31); CHLORIDE 99 mmol/L (97-110); CREATININE 0.56 mg/dl (0.44-1.00); GLUCOSE 110 mg/dl (70-220); MAGNESIUM 2.1 mg/dl (1.7-2.5); POTASSIUM 4.2 mmol/L (3.5-5.1); SODIUM 139 mmol/L (135-144)
[2017-08-02] MEDS: CITALOPRAM 20 MG TAB NGT (09:07)
[2017-08-02] MEDS: THIAMINE 100 MG TAB GTB (09:07)
[2017-08-02] MEDS: ASPIRIN 81 MG TAB PO (09:10)
[2017-08-02] MEDS: FOLIC ACID 1 MG TAB PO (09:10)
[2017-08-02] MEDS: METOPROLOL 100 MG TAB PO ×2 (09:10→21:22)
[2017-08-02] MEDS: FUROSEMIDE 40 MG TAB NGT (09:10)
[2017-08-02] MEDS: FAMOTIDINE 20 MG TAB PO (09:10)
[2017-08-02] MEDS: HEPARIN 5,000 UNIT/0.5 ML VIAL SC (09:12)
[2017-08-02] MEDS: QUETIAPINE 25 MG TAB PO (21:21)
[2017-08-03] MEDS: ALBUTEROL/IPRATROPIUM (NEB) 3 ML AMP HHN ×6 (01:46→21:14)
[2017-08-03] MEDS: DILTIAZEM 60 MG TAB NGT ×3 (06:26→19:54)
[2017-08-03 07:15] LABS: ALANINE AMINOTRANSFERASE 127 IU/L (13-69); ALBUMIN 3.7 g/dl (3.3-4.9); ALKALINE PHOSPHATASE 145 IU/L (42-121); ASPARTATE AMINO TRANSFERASE 155 IU/L (15-46); BILIRUBIN,INDIRECT 0.3 mg/dl (0-1.1); BILIRUBIN,TOTAL 0.3 mg/dl (0.2-1.3); TOTAL PROTEIN 7.6 g/dl (6.1-8.1)
[2017-08-03 07:26] LABS: INR 1.09; PROTIME 14.3 Sec (11.9-14.9); PT RATIO 1.1
[2017-08-03] MEDS: CITALOPRAM 20 MG TAB NGT (08:15)
[2017-08-03] MEDS: THIAMINE 100 MG TAB GTB (08:15)
[2017-08-03] MEDS: FUROSEMIDE 40 MG TAB NGT (08:16)
[2017-08-03] MEDS: FOLIC ACID 1 MG TAB PO (08:16)
[2017-08-03] MEDS: FAMOTIDINE 20 MG TAB PO (08:16)
[2017-08-03] MEDS: ASPIRIN 81 MG TAB PO (08:16)
[2017-08-03] MEDS: METOPROLOL 100 MG TAB PO ×2 (08:16→19:54)
[2017-08-03] MEDS: DEXTROSE 5%-0.9% NACL 1,000 ML IV (16:28)
[2017-08-03] MEDS: QUETIAPINE 25 MG TAB PO (19:54)
[2017-08-03] MEDS: METOPROLOL 5 MG INJ IV (20:00)
[2017-08-03] MEDS: [UNRECOGNIZED DRUG - REMARK] XX (20:30)
[2017-08-04] MEDS: ALBUTEROL/IPRATROPIUM (NEB) 3 ML AMP HHN ×7 (01:06→21:27)
[2017-08-04] MEDS: hydrALAzine 20 MG INJ IV (02:28)
[2017-08-04] MEDS: DILTIAZEM 25 MG INJ IV ×3 (02:28→12:02)
[2017-08-04] MEDS: [UNRECOGNIZED DRUG - REMARK] XX (03:47)
[2017-08-04] MEDS: DEXTROSE 5%-0.9% NACL 1,000 ML IV ×2 (04:56→20:47)
[2017-08-04] MEDS: DILTIAZEM 60 MG TAB NGT ×3 (06:00→20:44)
[2017-08-04] MEDS: THIAMINE 100 MG TAB GTB ×2 (09:00→13:41)
[2017-08-04] MEDS: FUROSEMIDE 40 MG TAB NGT (09:00)
[2017-08-04] MEDS: FOLIC ACID 1 MG TAB PO ×2 (09:00→13:41)
[2017-08-04] MEDS: CITALOPRAM 20 MG TAB NGT ×2 (09:00→13:41)
[2017-08-04] MEDS: ASPIRIN 81 MG TAB PO ×2 (09:00→13:41)
[2017-08-04] MEDS: FAMOTIDINE 20 MG TAB PO ×2 (09:00→13:41)
[2017-08-04] MEDS: METOPROLOL 100 MG TAB PO ×3 (09:00→20:41)
[2017-08-04] MEDS: BARIUM SULFATE 135 ML (E-Z HD) PO (10:41)
[2017-08-04] MEDS: QUETIAPINE 25 MG TAB PO (20:40)
[2017-08-05] MEDS: ALBUTEROL/IPRATROPIUM (NEB) 3 ML AMP HHN ×6 (00:58→20:16)
[2017-08-05] MEDS: DILTIAZEM 60 MG TAB NGT ×3 (05:25→22:39)
[2017-08-05 08:30] LABS: ANION GAP 14 (8-16); BLOOD UREA NITROGEN 13 mg/dl (7-20); CARBON DIOXIDE 29 mmol/L (21-31); CHLORIDE 105 mmol/L (97-110); CREATININE 0.64 mg/dl (0.44-1.00); GLUCOSE 113 mg/dl (70-220); POTASSIUM 4.1 mmol/L (3.5-5.1); SODIUM 144 mmol/L (135-144)
[2017-08-05] MEDS: CITALOPRAM 20 MG TAB NGT (10:43)
[2017-08-05] MEDS: FOLIC ACID 1 MG TAB PO (10:43)
[2017-08-05] MEDS: ASPIRIN 81 MG TAB PO (10:43)
[2017-08-05] MEDS: THIAMINE 100 MG TAB GTB (10:44)
[2017-08-05] MEDS: FAMOTIDINE 20 MG TAB PO (10:44)
[2017-08-05] MEDS: METOPROLOL 100 MG TAB PO ×2 (10:44→22:38)
[2017-08-05] MEDS: FUROSEMIDE 20 MG TAB NGT (10:46)
[2017-08-05] MEDS: DEXTROSE 5%-0.9% NACL 1,000 ML IV (11:59)
[2017-08-05] MEDS: MAGNESIUM SULFATE 1 GM/D5W 100 ML IVPB (16:04)
[2017-08-05] MEDS: QUETIAPINE 25 MG TAB PO (22:39)
[2017-08-06] MEDS: ALBUTEROL/IPRATROPIUM (NEB) 3 ML AMP HHN ×6 (00:42→20:00)
[2017-08-06] MEDS: DEXTROSE 5%-0.9% NACL 1,000 ML IV ×3 (05:38→20:39)
[2017-08-06] MEDS: DILTIAZEM 60 MG TAB NGT ×3 (05:39→22:01)
[2017-08-06 08:56] LABS: ADD MAN DIFF? NO
[2017-08-06 08:59] LABS: WHITE BLOOD COUNT 5.9 10^3/ul (4.8-10.8)
[2017-08-06 08:59] LABS: BASOPHILS % 0.5 % (0.0-2.0); EOSINOPHILS # 0.2 10^3/ul (0.0-0.5); EOSINOPHILS % 2.5 % (0.0-7.0); HEMATOCRIT 31.8 % (37.0-47.0); HEMOGLOBIN 10.5 g/dl (12.0-16.0); LYMPHOCYTES # 1.5 10^3/ul (0.8-2.9); MEAN CORPUSCULAR HEMOGLOBIN 33.8 pg (29.0-33.0); MEAN CORPUSCULAR VOLUME 102.3 fl (82.0-101.0); MEAN PLATELET VOLUME 12.6 fl (7.4-10.4); MONOCYTE # 0.3 10^3/ul (0.3-0.9); MONOCYTES % 5.2 % (0.0-11.0); NEUTROPHIL # 3.9 10^3/ul (1.6-7.5); NEUTROPHILS % 65.6 % (39.0-77.0); PLATELET COUNT 217 10^3/UL (140-415); RED BLOOD COUNT 3.11 10^6/ul (4.20-5.40)
[2017-08-06] MEDS: ASPIRIN 81 MG TAB PO (08:59)
[2017-08-06] MEDS: FOLIC ACID 1 MG TAB PO (08:59)
[2017-08-06] MEDS: CITALOPRAM 20 MG TAB NGT (08:59)
[2017-08-06] MEDS: METOPROLOL 100 MG TAB PO ×2 (09:00→20:37)
[2017-08-06] MEDS: FUROSEMIDE 20 MG TAB NGT (09:00)
[2017-08-06] MEDS: FAMOTIDINE 20 MG TAB PO (09:01)
[2017-08-06] MEDS: THIAMINE 100 MG TAB GTB (09:01)
[2017-08-06 09:39] LABS: ANION GAP 14 (8-16); BLOOD UREA NITROGEN 12 mg/dl (7-20); CALCIUM 9.1 mg/dl (8.4-10.2); CARBON DIOXIDE 25 mmol/L (21-31); CHLORIDE 110 mmol/L (97-110); CREATININE 0.62 mg/dl (0.44-1.00); GLUCOSE 103 mg/dl (70-220); POTASSIUM 3.7 mmol/L (3.5-5.1); SODIUM 145 mmol/L (135-144)
[2017-08-06] MEDS: DIPHENHYDRAMINE 50 MG INJ IV (16:08)
[2017-08-06] MEDS: QUETIAPINE 25 MG TAB PO (20:37)
[2017-08-07] MEDS: ALBUTEROL/IPRATROPIUM (NEB) 3 ML AMP HHN ×6 (01:48→20:28)
[2017-08-07] MEDS: DILTIAZEM 60 MG TAB NGT (06:36)
[2017-08-07] MEDS: THIAMINE 100 MG TAB GTB (08:37)
[2017-08-07] MEDS: CITALOPRAM 20 MG TAB NGT (08:37)
[2017-08-07] MEDS: FAMOTIDINE 20 MG TAB PO (08:37)
[2017-08-07] MEDS: ASPIRIN 81 MG TAB PO (08:37)
[2017-08-07] MEDS: FOLIC ACID 1 MG TAB PO (08:37)
[2017-08-07] MEDS: METOPROLOL 100 MG TAB PO ×2 (08:38→21:28)
[2017-08-07] MEDS: FUROSEMIDE 20 MG TAB NGT (08:39)
[2017-08-07] MEDS: LORAZEPAM 2 MG INJ IV (14:19)
[2017-08-07] MEDS: QUETIAPINE 25 MG TAB PO (21:29)
[2017-08-07] MEDS: DILTIAZEM (CD) 120 MG CAP PO (22:41)
[2017-08-08] MEDS: ALBUTEROL/IPRATROPIUM (NEB) 3 ML AMP HHN ×6 (00:38→20:05)
[2017-08-08] MEDS: CITALOPRAM 20 MG TAB NGT ×2 (09:00→10:10)
[2017-08-08] MEDS: FAMOTIDINE 20 MG TAB PO ×2 (09:00→10:10)
[2017-08-08] MEDS: ASPIRIN 81 MG TAB PO ×2 (09:00→10:11)
[2017-08-08] MEDS: FOLIC ACID 1 MG TAB PO ×2 (09:00→10:11)
[2017-08-08] MEDS: DILTIAZEM (CD) 120 MG CAP PO ×2 (09:00→10:10)
[2017-08-08] MEDS: THIAMINE 100 MG TAB GTB ×2 (09:00→10:11)
[2017-08-08] MEDS: METOPROLOL 100 MG TAB PO ×3 (09:00→20:25)
[2017-08-08] MEDS: FUROSEMIDE 20 MG TAB NGT ×2 (09:00→10:11)
[2017-08-08] MEDS ORDERED: NICOTINE (21 MG/24 HR) PATCH TRANSDERM (17:30)
[2017-08-08] MEDS: QUETIAPINE 25 MG TAB PO (20:24)
[2017-08-09] MEDS: DILTIAZEM 60 MG TAB PO ×5 (00:10→23:55)
[2017-08-09] MEDS: ALBUTEROL/IPRATROPIUM (NEB) 3 ML AMP HHN ×6 (01:03→20:31)
[2017-08-09] MEDS: FAMOTIDINE 20 MG TAB PO (09:17)
[2017-08-09] MEDS: CITALOPRAM 20 MG TAB NGT (09:17)
[2017-08-09] MEDS: FOLIC ACID 1 MG TAB PO (09:17)
[2017-08-09] MEDS: ASPIRIN 81 MG TAB PO (09:18)
[2017-08-09] MEDS: METOPROLOL 100 MG TAB PO ×2 (09:18→20:51)
[2017-08-09] MEDS: THIAMINE 100 MG TAB GTB (09:18)
[2017-08-09] MEDS: FUROSEMIDE 20 MG TAB NGT (09:18)
[2017-08-09] MEDS: QUETIAPINE 25 MG TAB PO (20:51)
[2017-08-10] MEDS: ALBUTEROL/IPRATROPIUM (NEB) 3 ML AMP HHN ×6 (00:24→20:58)
[2017-08-10] MEDS: DILTIAZEM 60 MG TAB PO ×3 (06:07→19:01)
[2017-08-10] MEDS: FAMOTIDINE 20 MG TAB PO (09:10)
[2017-08-10] MEDS: QUETIAPINE 25 MG TAB PO ×2 (09:11→22:09)
[2017-08-10] MEDS: CITALOPRAM 20 MG TAB NGT (09:11)
[2017-08-10] MEDS: FOLIC ACID 1 MG TAB PO (09:11)
[2017-08-10] MEDS: FUROSEMIDE 20 MG TAB NGT (09:11)
[2017-08-10] MEDS: ASPIRIN 81 MG TAB PO (09:12)
[2017-08-10] MEDS: METOPROLOL 100 MG TAB PO ×2 (09:12→22:10)
[2017-08-10] MEDS: THIAMINE 100 MG TAB GTB (09:12)
[2017-08-11] MEDS: ALBUTEROL/IPRATROPIUM (NEB) 3 ML AMP HHN ×6 (00:17→22:25)
[2017-08-11] MEDS: DILTIAZEM 60 MG TAB PO ×3 (00:48→14:22)
[2017-08-11] MEDS: CITALOPRAM 20 MG TAB NGT (10:43)
[2017-08-11] MEDS: THIAMINE 100 MG TAB GTB (10:43)
[2017-08-11] MEDS: FUROSEMIDE 20 MG TAB NGT (10:44)
[2017-08-11] MEDS: FOLIC ACID 1 MG TAB PO (10:44)
[2017-08-11] MEDS: ASPIRIN 81 MG TAB PO (10:44)
[2017-08-11] MEDS: METOPROLOL 100 MG TAB PO ×2 (10:45→20:29)
[2017-08-11] MEDS: QUETIAPINE 25 MG TAB PO ×2 (10:45→20:23)
[2017-08-11] MEDS: FAMOTIDINE 20 MG TAB PO (10:45)
[2017-08-11] MEDS: LORAZEPAM 0.5 MG TAB PO (20:23)
[2017-08-11] MEDS: DILTIAZEM (CD) 120 MG CAP PO (20:28)
[2017-08-12] MEDS: ALBUTEROL/IPRATROPIUM (NEB) 3 ML AMP HHN ×6 (01:15→21:15)
[2017-08-12] MEDS: THIAMINE 100 MG TAB GTB (09:08)
[2017-08-12] MEDS: CITALOPRAM 20 MG TAB NGT (09:09)
[2017-08-12] MEDS: FOLIC ACID 1 MG TAB PO (09:09)
[2017-08-12] MEDS: ASPIRIN 81 MG TAB PO (09:09)
[2017-08-12] MEDS: QUETIAPINE 25 MG TAB PO ×2 (09:09→20:45)
[2017-08-12] MEDS: FUROSEMIDE 20 MG TAB NGT (09:09)
[2017-08-12] MEDS: FAMOTIDINE 20 MG TAB PO (09:09)
[2017-08-12] MEDS: METOPROLOL 100 MG TAB PO ×2 (09:09→20:45)
[2017-08-12] MEDS: DILTIAZEM (CD) 120 MG CAP PO ×2 (09:10→20:44)
[2017-08-12 12:11] LABS: AMMONIA 19 umol/l (9-30)
[2017-08-12 12:16] LABS: ALANINE AMINOTRANSFERASE 57 IU/L (13-69); ALBUMIN 3.1 g/dl (3.3-4.9); ALBUMIN/GLOBULIN RATIO 0.93; ALKALINE PHOSPHATASE 69 IU/L (42-121); ANION GAP 13 (8-16); ASPARTATE AMINO TRANSFERASE 67 IU/L (15-46); BILIRUBIN,INDIRECT 0.3 mg/dl (0-1.1); BILIRUBIN,TOTAL 0.3 mg/dl (0.2-1.3); BLOOD UREA NITROGEN 15 mg/dl (7-20); CARBON DIOXIDE 31 mmol/L (21-31); CHLORIDE 112 mmol/L (97-110); CREATININE 0.63 mg/dl (0.44-1.00); GLUCOSE 94 mg/dl (70-220); POTASSIUM 3.9 mmol/L (3.5-5.1); SODIUM 152 mmol/L (135-144); TOTAL PROTEIN 6.4 g/dl (6.1-8.1)
[2017-08-12] MEDS: POTASSIUM CHLORIDE 10 MEQ in DEXTROSE 5% 1,000 ML IV (17:23)
[2017-08-12] MEDS: LORAZEPAM 0.5 MG TAB PO (20:45)
[2017-08-13] MEDS: ALBUTEROL/IPRATROPIUM (NEB) 3 ML AMP HHN ×6 (01:44→20:09)
[2017-08-13 07:12] LABS: ADD MAN DIFF? NO
[2017-08-13 07:14] LABS: BASOPHILS % 0.4 % (0.0-2.0); EOSINOPHILS # 0.2 10^3/ul (0.0-0.5); EOSINOPHILS % 3.7 % (0.0-7.0); HEMATOCRIT 36.8 % (37.0-47.0); HEMOGLOBIN 11.7 g/dl (12.0-16.0); LYMPHOCYTES # 1.7 10^3/ul (0.8-2.9); MEAN CORPUSCULAR HEMOGLOBIN 33.4 pg (29.0-33.0); MEAN CORPUSCULAR HGB CONC 31.8 g/dl (32.0-37.0); MEAN CORPUSCULAR VOLUME 105.1 fl (82.0-101.0); MEAN PLATELET VOLUME 12.3 fl (7.4-10.4); MONOCYTE # 0.4 10^3/ul (0.3-0.9); MONOCYTES % 6.7 % (0.0-11.0); NEUTROPHIL # 3.1 10^3/ul (1.6-7.5); NEUTROPHILS % 56.8 % (39.0-77.0); PLATELET COUNT 189 10^3/UL (140-415); RED CELL DISTRIBUTION WIDTH 15.1 % (11.5-14.5)
[2017-08-13 07:14] LABS: WHITE BLOOD COUNT 5.4 10^3/ul (4.8-10.8)
[2017-08-13 07:53] LABS: ANION GAP 14 (8-16); BLOOD UREA NITROGEN 14 mg/dl (7-20); CALCIUM 9.1 mg/dl (8.4-10.2); CARBON DIOXIDE 27 mmol/L (21-31); CHLORIDE 112 mmol/L (97-110); CREATININE 0.68 mg/dl (0.44-1.00); GLUCOSE 99 mg/dl (70-220); POTASSIUM 3.6 mmol/L (3.5-5.1); SODIUM 149 mmol/L (135-144)
[2017-08-13] MEDS: POTASSIUM CHLORIDE 10 MEQ in DEXTROSE 5% 1,000 ML IV ×2 (08:15→11:05)
[2017-08-13] MEDS: THIAMINE 100 MG TAB GTB (08:38)
[2017-08-13] MEDS: ASPIRIN 81 MG TAB PO (08:38)
[2017-08-13] MEDS: FUROSEMIDE 20 MG TAB NGT (08:38)
[2017-08-13] MEDS: QUETIAPINE 25 MG TAB PO ×2 (08:38→20:43)
[2017-08-13] MEDS: CITALOPRAM 20 MG TAB NGT (08:38)
[2017-08-13] MEDS: FAMOTIDINE 20 MG TAB PO (08:39)
[2017-08-13] MEDS: METOPROLOL 100 MG TAB PO ×2 (08:39→20:42)
[2017-08-13] MEDS: FOLIC ACID 1 MG TAB PO (08:39)
[2017-08-13] MEDS: DILTIAZEM (CD) 120 MG CAP PO ×2 (08:39→20:43)
[2017-08-13] MEDS ORDERED: PENDING SANTYL ORDER FOR WOUND CARE XX (13:30)
[2017-08-14] MEDS: ALBUTEROL/IPRATROPIUM (NEB) 3 ML AMP HHN ×6 (01:02→20:32)
[2017-08-14] MEDS: POTASSIUM CHLORIDE 10 MEQ in DEXTROSE 5% 1,000 ML IV (02:51)
[2017-08-14 07:35] LABS: ANION GAP 16 (8-16); BLOOD UREA NITROGEN 10 mg/dl (7-20); CARBON DIOXIDE 27 mmol/L (21-31); CHLORIDE 105 mmol/L (97-110); CREATININE 0.66 mg/dl (0.44-1.00); GLUCOSE 94 mg/dl (70-220); POTASSIUM 3.7 mmol/L (3.5-5.1); SODIUM 144 mmol/L (135-144)
[2017-08-14] MEDS: ASPIRIN 81 MG TAB PO (10:22)
[2017-08-14] MEDS: QUETIAPINE 25 MG TAB PO ×2 (10:22→21:26)
[2017-08-14] MEDS: DILTIAZEM (CD) 120 MG CAP PO ×2 (10:23→21:00)
[2017-08-14] MEDS: FUROSEMIDE 20 MG TAB NGT (10:23)
[2017-08-14] MEDS: FOLIC ACID 1 MG TAB PO (10:23)
[2017-08-14] MEDS: FAMOTIDINE 20 MG TAB PO (10:24)
[2017-08-14] MEDS: CITALOPRAM 20 MG TAB NGT (10:24)
[2017-08-14] MEDS: THIAMINE 100 MG TAB GTB (10:24)
[2017-08-14] MEDS: METOPROLOL 100 MG TAB PO ×2 (10:24→21:26)
[2017-08-15] MEDS: ALBUTEROL/IPRATROPIUM (NEB) 3 ML AMP HHN ×6 (00:11→21:35)
[2017-08-15] MEDS: DILTIAZEM 30 MG TAB PO ×4 (00:28→17:53)
[2017-08-15 06:33] LABS: ANION GAP 16 (8-16); BLOOD UREA NITROGEN 9 mg/dl (7-20); CALCIUM 9.1 mg/dl (8.4-10.2); CARBON DIOXIDE 28 mmol/L (21-31); CHLORIDE 105 mmol/L (97-110); CREATININE 0.64 mg/dl (0.44-1.00); GLUCOSE 79 mg/dl (70-220); POTASSIUM 3.6 mmol/L (3.5-5.1); SODIUM 145 mmol/L (135-144)
[2017-08-15] MEDS: FAMOTIDINE 20 MG TAB PO (09:04)
[2017-08-15] MEDS: CITALOPRAM 20 MG TAB NGT (09:04)
[2017-08-15] MEDS: QUETIAPINE 25 MG TAB PO ×2 (09:04→20:38)
[2017-08-15] MEDS: FOLIC ACID 1 MG TAB PO (09:04)
[2017-08-15] MEDS: THIAMINE 100 MG TAB GTB (09:05)
[2017-08-15] MEDS: FUROSEMIDE 20 MG TAB NGT (09:06)
[2017-08-15] MEDS: ASPIRIN 81 MG TAB PO (09:06)
[2017-08-15] MEDS: METOPROLOL 100 MG TAB PO ×2 (09:08→20:38)
[2017-08-15] MEDS: LORAZEPAM 0.5 MG TAB PO (20:39)
[2017-08-16] MEDS: DILTIAZEM 30 MG TAB PO ×4 (01:02→17:38)
[2017-08-16] MEDS: ALBUTEROL/IPRATROPIUM (NEB) 3 ML AMP HHN ×6 (02:26→21:22)
[2017-08-16 07:36] LABS: ANION GAP 13 (8-16); BLOOD UREA NITROGEN 9 mg/dl (7-20); CALCIUM 8.9 mg/dl (8.4-10.2); CARBON DIOXIDE 29 mmol/L (21-31); CHLORIDE 107 mmol/L (97-110); CREATININE 0.68 mg/dl (0.44-1.00); GLUCOSE 70 mg/dl (70-220); POTASSIUM 3.9 mmol/L (3.5-5.1); SODIUM 145 mmol/L (135-144)
[2017-08-16] MEDS: THIAMINE 100 MG TAB GTB (08:24)
[2017-08-16] MEDS: CITALOPRAM 20 MG TAB NGT (08:24)
[2017-08-16] MEDS: ASPIRIN 81 MG TAB PO (08:25)
[2017-08-16] MEDS: FUROSEMIDE 20 MG TAB NGT (08:25)
[2017-08-16] MEDS: FOLIC ACID 1 MG TAB PO (08:25)
[2017-08-16] MEDS: QUETIAPINE 25 MG TAB PO ×2 (08:25→20:34)
[2017-08-16] MEDS: METOPROLOL 100 MG TAB PO ×2 (08:25→20:34)
[2017-08-16] MEDS: FAMOTIDINE 20 MG TAB PO (08:25)
[2017-08-16] MEDS: LORAZEPAM 0.5 MG TAB PO (13:35)
[2017-08-16] MEDS: ACETAMINOPHEN 325 MG TAB PO (13:35)
[2017-08-17] MEDS: DILTIAZEM 30 MG TAB PO ×5 (00:16→23:57)
[2017-08-17] MEDS: ALBUTEROL/IPRATROPIUM (NEB) 3 ML AMP HHN ×6 (01:08→20:44)
[2017-08-17 07:32] LABS: ANION GAP 17 (8-16); BLOOD UREA NITROGEN 9 mg/dl (7-20); CALCIUM 9.3 mg/dl (8.4-10.2); CARBON DIOXIDE 26 mmol/L (21-31); CHLORIDE 106 mmol/L (97-110); GLUCOSE 83 mg/dl (70-220); SODIUM 145 mmol/L (135-144)
[2017-08-17] MEDS: FUROSEMIDE 20 MG TAB NGT (08:31)
[2017-08-17] MEDS: FOLIC ACID 1 MG TAB PO (08:31)
[2017-08-17] MEDS: FAMOTIDINE 20 MG TAB PO (08:31)
[2017-08-17] MEDS: THIAMINE 100 MG TAB GTB (08:31)
[2017-08-17] MEDS: ASPIRIN 81 MG TAB PO (08:31)
[2017-08-17] MEDS: METOPROLOL 100 MG TAB PO ×2 (08:31→20:32)
[2017-08-17] MEDS: QUETIAPINE 25 MG TAB PO ×2 (08:32→20:13)
[2017-08-17] MEDS: CITALOPRAM 20 MG TAB NGT (08:32)
[2017-08-17] MEDS: LORAZEPAM 0.5 MG TAB PO (14:14)
[2017-08-18] MEDS: ALBUTEROL/IPRATROPIUM (NEB) 3 ML AMP HHN ×6 (00:24→21:10)
[2017-08-18] MEDS: LORAZEPAM 0.5 MG TAB PO ×2 (02:08→09:26)
[2017-08-18] MEDS: DILTIAZEM 30 MG TAB PO ×4 (05:37→23:33)
[2017-08-18 07:28] LABS: ANION GAP 17 (8-16); BLOOD UREA NITROGEN 12 mg/dl (7-20); CALCIUM 9.3 mg/dl (8.4-10.2); CARBON DIOXIDE 25 mmol/L (21-31); CHLORIDE 105 mmol/L (97-110); CREATININE 0.64 mg/dl (0.44-1.00); GLUCOSE 101 mg/dl (70-220); POTASSIUM 4.2 mmol/L (3.5-5.1); SODIUM 143 mmol/L (135-144)
[2017-08-18] MEDS: FOLIC ACID 1 MG TAB PO (08:24)
[2017-08-18] MEDS: METOPROLOL 100 MG TAB PO ×2 (08:24→20:38)
[2017-08-18] MEDS: THIAMINE 100 MG TAB GTB (08:24)
[2017-08-18] MEDS: ASPIRIN 81 MG TAB PO (08:24)
[2017-08-18] MEDS: QUETIAPINE 25 MG TAB PO ×2 (08:24→21:49)
[2017-08-18] MEDS: FUROSEMIDE 20 MG TAB NGT (08:25)
[2017-08-18] MEDS: CITALOPRAM 20 MG TAB NGT (08:25)
[2017-08-18] MEDS: FAMOTIDINE 20 MG TAB PO (08:25)
[2017-08-19] MEDS: ALBUTEROL/IPRATROPIUM (NEB) 3 ML AMP HHN ×6 (01:00→21:25)
[2017-08-19] MEDS: DILTIAZEM 30 MG TAB PO ×3 (05:53→18:06)
[2017-08-19] MEDS: QUETIAPINE 25 MG TAB PO ×2 (08:40→20:26)
[2017-08-19] MEDS: CITALOPRAM 20 MG TAB NGT (08:40)
[2017-08-19] MEDS: THIAMINE 100 MG TAB GTB (08:40)
[2017-08-19] MEDS: FAMOTIDINE 20 MG TAB PO (08:40)
[2017-08-19] MEDS: FUROSEMIDE 20 MG TAB NGT (08:41)
[2017-08-19] MEDS: FOLIC ACID 1 MG TAB PO (08:41)
[2017-08-19] MEDS: METOPROLOL 100 MG TAB PO ×2 (08:41→20:26)
[2017-08-19] MEDS: ASPIRIN 81 MG TAB PO (08:41)
[2017-08-20] MEDS: DILTIAZEM 30 MG TAB PO ×4 (00:14→17:17)
[2017-08-20] MEDS: ALBUTEROL/IPRATROPIUM (NEB) 3 ML AMP HHN ×6 (00:43→20:52)
[2017-08-20] MEDS: FAMOTIDINE 20 MG TAB PO (08:44)
[2017-08-20] MEDS: THIAMINE 100 MG TAB GTB (08:44)
[2017-08-20] MEDS: ASPIRIN 81 MG TAB PO (08:44)
[2017-08-20] MEDS: FOLIC ACID 1 MG TAB PO (08:44)
[2017-08-20] MEDS: CITALOPRAM 20 MG TAB NGT (08:44)
[2017-08-20] MEDS: QUETIAPINE 25 MG TAB PO ×2 (08:44→21:20)
[2017-08-20] MEDS: METOPROLOL 100 MG TAB PO ×2 (08:45→21:20)
[2017-08-20] MEDS: FUROSEMIDE 20 MG TAB NGT (08:45)
[2017-08-21] MEDS: DILTIAZEM 30 MG TAB PO ×3 (00:27→12:49)
[2017-08-21] MEDS: ALBUTEROL/IPRATROPIUM (NEB) 3 ML AMP HHN ×4 (02:32→13:25)
[2017-08-21] MEDS: THIAMINE 100 MG TAB GTB (08:30)
[2017-08-21] MEDS: FUROSEMIDE 20 MG TAB NGT (08:30)
[2017-08-21] MEDS: QUETIAPINE 25 MG TAB PO (08:30)
[2017-08-21] MEDS: FAMOTIDINE 20 MG TAB PO (08:30)
[2017-08-21] MEDS: FOLIC ACID 1 MG TAB PO (08:30)
[2017-08-21] MEDS: CITALOPRAM 20 MG TAB NGT (08:30)
[2017-08-21] MEDS: ASPIRIN 81 MG TAB PO (08:30)
[2017-08-21] MEDS: METOPROLOL 100 MG TAB PO (08:31)
[2017-08-22] MEDS ORDERED: THIAMINE 100 MG TAB GTB (09:00)
[2017-08-22] MEDS ORDERED: FOLIC ACID 1 MG TAB PO (09:00)
== END 2017-08-21 16:46 | DRG 432 ==
LOC: TEL 08-06 20:18 → PP2 08-07 18:38 → TEL 14:27
PROVIDERS: Internal Medicine
PROC: 0W993ZZ Drainage of Right Pleural Cavity, Percutaneous Approach (ICD-10-PCS; principal; 2017-07-24)
PROC: 009U3ZX Drainage of Spinal Canal, Percutaneous Approach, Diagnostic (ICD-10-PCS; 2017-07-24)
PROC: B01B1ZZ Fluoroscopy of Spinal Cord using Low Osmolar Contrast (ICD-10-PCS; 2017-07-24)
DX: K70.40 Alcoholic hepatic failure without coma (principal); G92 Toxic encephalopathy; I50.33 Acute on chronic diastolic (congestive) heart failure; F10.221 Alcohol dependence with intoxication delirium; J90 Pleural effusion, not elsewhere classified; F10.239 Alcohol dependence with withdrawal, unspecified; E51.2 Wernicke's encephalopathy; F10.921 Alcohol use, unspecified with intoxication delirium; I48.91 Unspecified atrial fibrillation; R73.03 Prediabetes; D64.89 Other specified anemias; Z91.14 Patient's other noncompliance with medication regimen; Z87.891 Personal history of nicotine dependence; F10.229 Alcohol dependence with intoxication, unspecified; I36.1 Nonrheumatic tricuspid (valve) insufficiency; I35.0 Nonrheumatic aortic (valve) stenosis; R13.10 Dysphagia, unspecified; G47.419 Narcolepsy without cataplexy; Z78.1 Physical restraint status; K76.0 Fatty (change of) liver, not elsewhere classified
CPT/HCPCS: 32555; 36600; 70450; 70551; 70552; 71045; 71250; 74230; 76705; 80048; 80053; 80061; 80076; 82042; 82140; 82607; 82728; 82746; 82803; 82945; 83036; 83540; 83615; 83735; 84100; 84157; 84439; 84443; 85025; 85610; 85730; 86592; 86803; 87070; 87102; 87116; 87340; 87529; 89051; 92526; 92610; 92611; 93306; 94640; 94664; 95819; 97110; 97116; 97163; 97530

== ENCOUNTER 2017-11-27 17:02 | Inpatient (IN) | payer OTHER ==
[2017-11-27] MEDS ORDERED: NACL 0.9% 3 ML SYG IV (17:30)
[2017-11-27 17:49] LABS: ADD MAN DIFF? NO
[2017-11-27 17:52] LABS: WHITE BLOOD COUNT 3.4 10^3/ul (4.8-10.8)
[2017-11-27 17:52] LABS: BASOPHILS % 0.3 % (0.0-2.0); EOSINOPHILS % 0.9 % (0.0-7.0); HEMOGLOBIN 10.6 g/dl (12.0-16.0); LYMPHOCYTES # 1.2 10^3/ul (0.8-2.9); LYMPHOCYTES % 34.7 % (15.0-51.0); MEAN CORPUSCULAR HEMOGLOBIN 30.8 pg (29.0-33.0); MEAN CORPUSCULAR HGB CONC 32.1 g/dl (32.0-37.0); MEAN CORPUSCULAR VOLUME 95.9 fl (82.0-101.0); MEAN PLATELET VOLUME 10.8 fl (7.4-10.4); MONOCYTE # 0.2 10^3/ul (0.3-0.9); MONOCYTES % 6.4 % (0.0-11.0); NEUTROPHILS % 57.4 % (39.0-77.0); PLATELET COUNT 112 10^3/UL (140-415); RED BLOOD COUNT 3.44 10^6/ul (4.20-5.40); RED CELL DISTRIBUTION WIDTH 13.7 % (11.5-14.5)
[2017-11-27 18:12] LABS: ALANINE AMINOTRANSFERASE 20 IU/L (13-69); ALBUMIN 4.2 g/dl (3.3-4.9); ALBUMIN/GLOBULIN RATIO 1.23; ALKALINE PHOSPHATASE 86 IU/L (42-121); ANION GAP 11 (8-16); ASPARTATE AMINO TRANSFERASE 35 IU/L (15-46); BILIRUBIN,INDIRECT 0.4 mg/dl (0-1.1); BILIRUBIN,TOTAL 0.4 mg/dl (0.2-1.3); BLOOD UREA NITROGEN 16 mg/dl (7-20); CALCIUM 9.6 mg/dl (8.4-10.2); CARBON DIOXIDE 25 mmol/L (21-31); CHLORIDE 107 mmol/L (97-110); CREATININE 0.85 mg/dl (0.44-1.00); GLUCOSE 98 mg/dl (70-220); POTASSIUM 4.4 mmol/L (3.5-5.1); SODIUM 139 mmol/L (135-144); TOTAL PROTEIN 7.6 g/dl (6.1-8.1)
[2017-11-27] MEDS: LORAZEPAM 1 MG TAB PO (19:34)
[2017-11-27] MEDS: METOPROLOL (XL) 50 MG TAB PO (19:35)
[2017-11-28] MEDS: LORAZEPAM 1 MG TAB PO ×2 (00:59→21:22)
[2017-11-28 08:00] LABS: ADD MAN DIFF? NO
[2017-11-28 08:11] LABS: WHITE BLOOD COUNT 3.7 10^3/ul (4.8-10.8)
[2017-11-28 08:11] LABS: BASOPHILS % 0.5 % (0.0-2.0); EOSINOPHILS # 0.1 10^3/ul (0.0-0.5); EOSINOPHILS % 1.6 % (0.0-7.0); HEMOGLOBIN 10.3 g/dl (12.0-16.0); LYMPHOCYTES # 1.2 10^3/ul (0.8-2.9); LYMPHOCYTES % 31.6 % (15.0-51.0); MEAN CORPUSCULAR HEMOGLOBIN 30.6 pg (29.0-33.0); MEAN CORPUSCULAR HGB CONC 32.2 g/dl (32.0-37.0); MONOCYTE # 0.3 10^3/ul (0.3-0.9); MONOCYTES % 7.9 % (0.0-11.0); NEUTROPHIL # 2.1 10^3/ul (1.6-7.5); NEUTROPHILS % 58.1 % (39.0-77.0); PLATELET COUNT 107 10^3/UL (140-415); RED BLOOD COUNT 3.37 10^6/ul (4.20-5.40); RED CELL DISTRIBUTION WIDTH 13.6 % (11.5-14.5)
[2017-11-28 08:15] LABS: HEMOGLOBIN A1C 5.4 % (0-5.9)
[2017-11-28] MEDS: QUETIAPINE 25 MG TAB PO (08:43)
[2017-11-28] MEDS: METOPROLOL (XL) 50 MG TAB PO (08:43)
[2017-11-28] MEDS ORDERED: ENOXAPARIN 30 MG/0.3 ML SYG SC (09:00)
[2017-11-28 09:16] LABS: HIV 1&2 ANTIBODY NEGATIVE (NEGATIVE)
[2017-11-28] MEDS: RIVAROXABAN 20 MG TABLET PO (17:59)
[2017-11-29] MEDS: HALOPERIDOL 5 MG INJ IM (00:23)
[2017-11-29] MEDS: METOPROLOL (XL) 50 MG TAB PO (09:42)
[2017-11-29] MEDS: QUETIAPINE 25 MG TAB PO (09:42)
[2017-11-29] MEDS: LORAZEPAM 1 MG TAB PO (13:05)
[2017-11-29] MEDS: RIVAROXABAN 20 MG TABLET PO (17:42)
[2017-11-29 23:35] LABS: ADD UMIC YES; UR ASCORBIC ACID NEGATIVE (NEGATIVE); UR BILIRUBIN (Dip) NEGATIVE (NEGATIVE); UR BLOOD (Dip) NEGATIVE (NEGATIVE); UR CLARITY CLEAR (CLEAR); UR COLOR STRAW (YELLOW); UR GLUCOSE (Dip) NEGATIVE (NEGATIVE); UR KETONES (Dip) NEGATIVE (NEGATIVE); UR LEUKOCYTE ESTERASE (Dip) TRACE Leu/ul (NEGATIVE); UR NITRITE (Dip) NEGATIVE (NEGATIVE); UR RBC 0 /HPF (0-5); UR SPECIFIC GRAVITY (Dip) 1.005 (1.003-1.030); UR TOTAL PROTEIN (Dip) NEGATIVE (NEGATIVE); UR UROBILINOGEN (Dip) NEGATIVE (NEGATIVE); UR WBC 2 /HPF (0-5)
[2017-11-30] MEDS: QUETIAPINE 25 MG TAB PO ×2 (09:21→21:06)
[2017-11-30] MEDS: METOPROLOL (XL) 50 MG TAB PO (09:21)
[2017-11-30] MEDS: HALOPERIDOL 5 MG INJ IM ×2 (16:22→23:29)
[2017-11-30] MEDS: RIVAROXABAN 20 MG TABLET PO (17:08)
[2017-12-01] MEDS: QUETIAPINE 25 MG TAB PO ×2 (08:14→20:51)
[2017-12-01] MEDS: METOPROLOL (XL) 50 MG TAB PO (08:15)
[2017-12-01] MEDS: CITALOPRAM 20 MG TAB PO (12:12)
[2017-12-01] MEDS: LORAZEPAM 1 MG TAB PO (15:52)
[2017-12-01] MEDS: RIVAROXABAN 20 MG TABLET PO (17:36)
[2017-12-02] MEDS: CITALOPRAM 20 MG TAB PO (08:13)
[2017-12-02] MEDS: METOPROLOL (XL) 50 MG TAB PO (08:14)
[2017-12-02] MEDS: QUETIAPINE 25 MG TAB PO ×2 (08:14→20:31)
[2017-12-02] MEDS: RIVAROXABAN 20 MG TABLET PO (17:14)
[2017-12-03] MEDS: QUETIAPINE 25 MG TAB PO (08:01)
[2017-12-03] MEDS: CITALOPRAM 20 MG TAB PO (08:01)
[2017-12-03] MEDS: METOPROLOL (XL) 50 MG TAB PO (08:03)
== END 2017-12-03 13:50 | disposition home or self-care (01) | DRG 897 ==
LOC: 5EC 17:02
DX: F10.188 Alcohol abuse with other alcohol-induced disorder (principal); I48.91 Unspecified atrial fibrillation; Z79.01 Long term (current) use of anticoagulants; F03.90 Unspecified dementia, unspecified severity, without behavioral disturbance, psychotic disturbance, mood disturbance, and anxiety; Z79.82 Long term (current) use of aspirin
CPT/HCPCS: 76705; 80053; 81001; 83036; 85025; 86703; 87086